=== PATIENT | female | born 1965 | race African-American/Black ===

== ENCOUNTER 2018-11-07 11:03 | Day surgery (SDC) | payer BC ==
[2018-11-06 10:00] VITALS: BMI 48.0
[~2018-11-07 11:03] MED LIST: PROPOFOL 200 MG/20 ML VIAL ONE
--- NOTE | 2018-11-07 20:05 | OP ---
DATE OF PROCEDURE: 11/07/2018 TITLE OF PROCEDURE: Screening colonoscopy. PREPROCEDURE DIAGNOSIS: Average risk screening. POSTPROCEDURE DIAGNOSES: 1. Exam to cecum; good bowel preparation. 2. Small internal hemorrhoids. 3. No polyp seen. 4. Otherwise normal colonoscopy. DESCRIPTION OF PROCEDURE: Written informed consent was obtained. The patient was brought to the endoscopy suite. Total intravenous anesthesia was administered by Dr. Jordyn Padilla and associates. The patient was placed in the left lateral decubitus position. A digital rectal exam was performed that was unremarkable. A Pentax videocolonoscope was inserted through the anal canal and advanced under direct visualization to the cecum. Position in the cecum was verified by clear identification of the ileocecal valve and appendiceal orifice. The quality of the bowel preparation was good. Each colon segment was examined carefully as the colonoscope was slowly withdrawn from the cecum. Vascular pattern and haustral folds appeared normal. No polyp or vascular ectasia was identified. In the rectum, a retroflexed view demonstrated small internal hemorrhoids that were not actively bleeding. The colon was decompressed as the colonoscope was completely removed from the patient. She was transferred to the Day Stay surgery area for postprocedure monitoring. There were no immediate complications. RECOMMENDATIONS: 1. Resume previous medications. 2. Resume previous diet. 3. Conservative treatment for hemorrhoids if they become symptomatic. 4. Annual fecal immunochemical testing of the stool beginning in 5 years. 5. Repeat colonoscopy in 10 years. 6. Follow up with Gastroenterology as needed. Job ID: [id number]
== END 2018-11-07 14:50 | disposition home or self-care (01) ==
LOC: SDC 11:03
PROVIDERS: ATTEND Internal Medicine Gastroenterology
PROC: 0DJD8ZZ Inspection of Lower Intestinal Tract, Via Natural or Artificial Opening Endoscopic (ICD-10-PCS; principal; 2018-11-07)
DX: Z12.11 Encounter for screening for malignant neoplasm of colon (principal); K64.8 Other hemorrhoids; I10 Essential (primary) hypertension; Z79.899 Other long term (current) drug therapy

== ENCOUNTER 2022-08-25 07:45 | Outpatient (CLI) | payer OTHER | END 2022-08-25 07:46 | disposition home or self-care (01) | LOC: BICULT 07:45 | PROVIDERS: ATTEND Internal Medicine Gastroenterology | DX: R10.13 Epigastric pain (principal); M25.50 Pain in unspecified joint; R19.4 Change in bowel habit; K76.0 Fatty (change of) liver, not elsewhere classified | CPT/HCPCS: 76705 ==